=== PATIENT | male | born 1970 | race Caucasian/White ===

== ENCOUNTER → 2017-03-11 | Outpatient (CLI) | payer OTHER | LOC: CIMAGING 08:43 | PROVIDERS: ATTEND Orthopaedic Surgery | DX: Z01.818 Encounter for other preprocedural examination (principal); M17.11 Unilateral primary osteoarthritis, right knee; M16.11 Unilateral primary osteoarthritis, right hip ==

== ENCOUNTER 2017-03-29 06:03 | Inpatient (IN) | payer OTHER ==
[~2017-03-29 06:03] MED LIST: ROPI/epiNEPH/KETOROLAC JOINT COCKTAIL IU ONE; TRANEXAMIC ACID 3,000 MG in NS 50 ML IRR ONE
[2017-03-29] MEDS ORDERED: FAMOTIDINE 20 MG TAB PO ONE (06:10)
[2017-03-29] MEDS ORDERED: ACETAMINOPHEN 325 MG TAB PO ONE (06:10)
[2017-03-29] MEDS ORDERED: ceFAZolin 2 GM/SWFI 2 GM/20 ML SYR IVP ONE (06:10)
[2017-03-29] MEDS ORDERED: DEXAMETHASONE 4 MG/ML VIAL IVP ONE (06:10)
[2017-03-29] MEDS ORDERED: LR 1,000 ML IV ONE (06:11)
[2017-03-29] MEDS ORDERED: TRANEXAMIC ACID 3,000 MG/50 ML BAG IRR ONE (06:38)
[2017-03-29] MEDS ORDERED: VANCOMYCIN 1 GM VIAL ONE (06:38)
[2017-03-29] MEDS ORDERED: PROPOFOL/EMULSION 500 MG/50 ML BOTTLE IV ONE ×2 (07:11→07:46)
[2017-03-29] MEDS ORDERED: LIDOCAINE 2% 5 ML SDV ONE ×3 (07:12→08:04)
--- NOTE | 2017-03-29 07:15 | PDHPUP ---
History & Physical Update H&P update statement: This history and physical update is based on an assessment of the patient which was completed after admission or registration (within 24 hours), but prior to the surgery/procedure. H&P update: H&P reviewed & patient examined, no change in patient's condition since H&P completed
[2017-03-29] MEDS ORDERED: CYCLOBENZAPRINE 10 MG TAB PO PRN (07:16)
[2017-03-29] MEDS ORDERED: PROMETHAZINE HCL 25 MG/ML INJ IVP PRN (07:16)
[2017-03-29] MEDS ORDERED: BISACODYL 10 MG SUPP PR PRN (07:16)
[2017-03-29] MEDS ORDERED: METOCLOPRAMIDE 10 MG/2 ML VIAL IVP PRN (07:16)
[2017-03-29] MEDS ORDERED: PROMETHAZINE HCL 25 MG SUPPR PR PRN (07:16)
[2017-03-29] MEDS ORDERED: DIPHENOXYLATE/ATROPINE LOMOTIL 1 TAB PO PRN (07:16)
[2017-03-29] MEDS ORDERED: TEMAZEPAM 15 MG CAP PO PRN (07:16)
[2017-03-29] MEDS ORDERED: MAGNESIUM HYDROXIDE 30 ML UDCUP PO PRN (07:16)
[2017-03-29] MEDS ORDERED: diphenhydrAMINE 25 MG CAP PO PRN (07:16)
[2017-03-29] MEDS ORDERED: ONDANSETRON DISINTEGRATING 4 MG TAB PO PRN (07:16)
[2017-03-29] MEDS ORDERED: LACTULOSE 20 GM/30 ML UDCUP PO PRN (07:16)
[2017-03-29] MEDS ORDERED: ONDANSETRON 4 MG/2 ML VIAL IVP PRN ×2 (07:16→08:26)
[2017-03-29] MEDS ORDERED: POLYETHYLENE GLYCOL 3350 17 GM PKT PO PRN (07:16)
[2017-03-29] MEDS ORDERED: NS 1,000 ML IV SCH (07:30)
[2017-03-29] MEDS ORDERED: HYDROmorphONE/DILAUDID 2 MG/ML INJ ONE (07:46)
[2017-03-29] MEDS ORDERED: DEXAMETHASONE 4 MG/ML VIAL ONE ×2 (07:59→08:05)
--- NOTE | 2017-03-29 07:59 | PDANEPAE ---
ANE History of Present Illness knee arthroplasty ANE Past Medical History - Cardiovascular History Hx Hypertension: No Hx Arrhythmias: No Hx Chest Pain: No Hx Coronary Artery / Peripheral Vascular Disease: No Hx CHF / Valvular Disease: No Hx Palpitations: No Cardiovascular History Comment: recent dx of elevated BP-on HCTZ - Pulmonary History Hx COPD: No Hx Asthma/Reactive Airway Disease: No Hx Recent Upper Respiratory Infection: No Hx Oxygen in Use at Home: No Hx Sleep Apnea: No Sleep Apnea Screening Result - Last Documented: Negative - Neurologic History Hx Cerebrovascular Accident: No Hx Seizures: No Hx Dementia: No - Endocrine History Hx Diabetes: No - Renal History Hx Renal Disorders: No - Liver History Hx Hepatic Disorders: No - Neurological & Psychiatric Hx Hx Neurological and Psychiatric Disorders: Yes Neurological / Psychiatric History Comment: "twitching" in neck area. Occ in legs. - Cancer History Hx Cancer: No - Congenital Disorder History Hx Congenital Disorders: No - GI History Hx Gastrointestinal Disorders: No - Other Health History Other Health History: OA -bilat knees-R knee more painful - Chronic Pain History Chronic Pain: Yes (bilat knees) - Surgical History Prior Surgeries: C4 to C7 fusion. L4/L5 fusion. Bilat shoulder surgery(biceps tendon). bilat knee scopes x2. appy ANE Review of Systems Review of Systems: - Exercise capacity METS (RN): 4 METS ANE Patient History - Allergies Allergies/Adverse Reactions: No Known Allergies Allergy (Verified 03/05/17 14:12) - Home Medications Home Medications: Ibuprofen [Motrin (*)] 200 mg PO DAILY PRN 02/28/17 [Last Taken 03/15/17] Lisinopril 5 mg PO DAILY 03/29/17 [Last Taken 03/29/17 04:30] - NPO status NPO Since - Liquids (Date): 03/28/17 NPO Since - Liquids (Time): 21:00 NPO Since - Solids (Date): 03/28/17 NPO Since - Solids (Time): 20:30 - Anes Hx Anes Hx: no prior problems - Smoking Hx Smoking Status: Never smoked ANE Labs/Vital Signs - Vital Signs Blood Pressure: 154/91 Heart Rate: 69 Respiratory Rate: 17 O2 Sat (%): 94 Height: 182.88 cm Weight: 117.934 kg ANE Physical Exam - Airway Mallampati Score: Class 2 Mouth exam: normal dental/mouth exam - Pulmonary Pulmonary: no respiratory distress - Cardiovascular Cardiovascular: regular rate and rhythym - ASA Status ASA Status: II ANE Anesthesia Plan Anesthesia Plan: spinal Regional Anesthesia: adductor canal FNB
[2017-03-29] MEDS ORDERED: ONDANSETRON 4 MG/2 ML VIAL ONE (08:00)
[2017-03-29] MEDS ORDERED: SUGAMMADEX SODIUM 200 MG/2 ML VIAL IVP ONE ×2 (08:01→08:34)
[2017-03-29] MEDS ORDERED: ROPIVACAINE HCL 150 MG/30 ML INJ ONE (08:02)
[2017-03-29] MEDS ORDERED: epHEDrine SULFATE 10 MG/ML SYR ONE (08:21)
[2017-03-29] MEDS ORDERED: HYDROmorphONE/DILAUDID 1 MG/ML INJ IVP PRN (08:26)
[2017-03-29] MEDS ORDERED: NALOXONE HCL 0.4 MG/ML INJ IVP PRN (08:26)
[2017-03-29] MEDS ORDERED: LR 500 ML IV PRN (08:26)
[2017-03-29] MEDS ORDERED: ALBUTEROL 3 ML DEYVIAL IH PRN (08:26)
--- NOTE | 2017-03-29 08:53 | POSTOPPROG ---
Post Op Note Date of Operation: 03/29/17 Surgeon: Skylar Damon Medical Staff Services Manager: el damon Anesthesiologist: dr. wallace Anesthesia: Spinal, Other (Specify) (adductor canal block) Pre-op Diagnosis: Right knee OA Post-op Diagnosis: same Indication: right knee pain due to OA that failed conservative measures Procedure: R TKA robot assisted Findings: severe knee OA Inf/Abcess present in the surg proc area at time of surgery?: No EBL: 50-100
[2017-03-29] MEDS ORDERED: SENNOSIDES/DOCUSATE SODIUM TAB PO SCH (09:00)
--- NOTE | 2017-03-29 09:09 | POSTANESTH ---
Post Anesthetic Evaluation Cardiovascular Status: Normal, Stable Respiratory Status: Normal, Stable Level of Consciousness/Mental Status: Can Participate in Eval Pain Control: Adequate, Prn Tx Ordered Nausea/Vomiting Control: Adequate, Prn Tx Ordered Complications Possibly Related to Anesthesia: None Noted
[2017-03-29] MEDS ORDERED: fentaNYL 100 MCG/2 ML INJ ONE (09:44)
[2017-03-29] MEDS: fentaNYL 100 MCG/2 ML INJ IVP PRN ×2 (09:50→10:12)
[2017-03-29 10:41] VITALS: RESP 16; TEMP 98.2
[2017-03-29] MEDS: oxyCODONE IR 5 MG TAB PO PRN ×2 (11:48→15:47)
[2017-03-29] MEDS ORDERED: ACETAMINOPHEN 325 MG TAB PO SCH (12:00)
[2017-03-29 13:03] VITALS: BP 109/52; PULSE 78; O2SAT 92
[2017-03-29] MEDS ORDERED: ceFAZolin 2 GM/DEXTROSE 100 ML IV SCH (15:00)
--- NOTE | 2017-03-29 16:24 | ASDISCHSUM ---
Discharge Information Plan Status:Home with No Needs Medically Cleared to Leave: Discharge Date:03/29/2017 04:03 PM CM D/C Disposition:Home, Routine, Self-Care ADT D/C Disposition:Home, Routine, Self-Care Projected Discharge Date:03/29/2017 04:03 PM Transportation at D/C: Discharge Delay Reason: Follow-Up Date:03/29/2017 04:03 PM Discharge Slot: Final Diagnosis: Placement Information Patient Contact Information Contact Name:FERMIN Relationship:Life Partner Address: Work Phone: City: [facility] Phone: State/Zip Code: Email: Financial Information Financial Class:HMO and PPO Plans Primary Plan Desc:[employer] Primary Plan Number:[id number] Secondary Plan Desc: Secondary Plan Number: Assessment Information CM Clinical Abstractor Assessment CM Note CM Note Notes: Pedro is excepting to discharge home from the hospital independently. He stated he has had several surgeries before and is familiar with the routine. Pedro did note that he has a scab on his knee and that [facility]' office is requiring it heal before surgery. Date Signed: 03/19/2017 02:21 PM Electronically Signed By:Akilah Stuart Intervention Information
[2017-03-29] MEDS ORDERED: ASPIRIN EC 81 MG TAB PO SCH (21:00)
[2017-03-29] MEDS ORDERED: FAMOTIDINE 20 MG TAB PO SCH (21:00)
[2017-03-30] MEDS ORDERED: LISINOPRIL 5 MG TAB PO SCH (09:00)
--- NOTE | 2017-03-30 12:12 | GDS ---
[f rep st] DISCHARGE SUMMARY ADMISSION DIAGNOSIS: Right knee osteoarthritis. DISCHARGE DIAGNOSIS: Right knee osteoarthritis. PROCEDURE: Right total knee arthroplasty, robot assisted. VTE PROPHYLAXIS: Aspirin 81 mg b.i.d. for 4 weeks recommended. BRIEF DESCRIPTION OF HOSPITAL STAY: Patient was admitted for an elective joint arthroplasty. The pa filiberto tolerated the procedure well and has passed physical therapy. The patient was given appropriat e antibiotic prophylaxis and venous thromboembolism prophylaxis. The patient's pain was well control led on oral pain medication, patient was holding down food, and had urinated. Decision was made to d ischarge the patient. The patient was given post-operative prescriptions pre-operatively. PLAN: To follow up as scheduled, Dr. Aviles's office, April 18 at 9 a.m. /[id number]/MODL
--- NOTE | 2017-03-30 12:27 | GOP ---
[f rep st] OPERATIVE REPORT DATE OF OPERATION: 03/29/2017 SURGEON: Nallely Aviles MD SUPPLY CHAIN VICE PRESIDENT: TRISTAN Chávez ANESTHESIA: Spinal. PREOPERATIVE DIAGNOSIS: Right knee osteoarthritis. POSTOPERATIVE DIAGNOSIS: Right knee osteoarthritis. PROCEDURE PERFORMED: Right total knee arthroplasty with computer navigation and robotic assist. FINDINGS: ESTIMATED BLOOD LOSS: 30 cc. INDICATIONS: This is a 46-year-old male with severe and progressive pain and deformity of the right knee unresponsive to conservative care. The risks and benefits of surgical intervention were explained in detail. DESCRIPTION OF PROCEDURE: The patient was brought to the operative room and placed on the table in the supine position. Spinal anesthesia was induced without difficulty. A pneumatic tourniquet was applied about the right proximal thigh, and the leg was prepped and draped in a sterile fashion. The leg islas was applied. After exsanguination by elevation the tourniquet was inflated to 275 mm of mercury. Incision was made anterior medial from the tibial tuberosity to a point 2 cm proximal to the superior pole of the patella. Medial parapatellar arthrotomy was carried out from the superior pole of the patella and posteriorly in line with the fibers of the Type II VMO. The medial collateral ligament was elevated and the infrapatellar fat pad was resected. The patella was everted and the articular surface was excised. A 38 mm patellar button was placed. Attention was turned first to the distal aspect of the right femur. At 3 cm proximal to the medial rise of the femur, 2 percutaneous half pins were placed for fixation of the femoral array. In a similar fashion, 2 pins were placed anteromedial on the tibia for fixation of the tibial array. External land marking and registration of the hip center was performed without difficulty. Internal femoral and tibial registration was carried out without difficulty and the femoral and tibial checkpoints were placed and verified for accuracy. Attention was turned to the femur. The foot print for the size 6 femoral component was cut with the saw using the [employer] robotic system and verified for accuracy against the CT based plan. In a similar fashion, saw was used to cut the footprint for the size 7 tibial component using the [employer] system and verified for accuracy against the CT based plan. The tibial articular surface was excised without difficulty, followed by the intercondylar box cut. The knee was extended and the remnants of the medial and lateral meniscus were excised. The posterior capsule was injected with ropivacaine, epinephrine and Toradol. A size 7 MIS mini-keel tibial tray was positioned. Trial reduction was then carried out. There was excellent range of motion, alignment, and stability using the 9 mm polyethylene. All trials were then removed. The joint was thoroughly irrigated and carefully dried. Two packages of cement and 2 grams of vancomycin were mixed in the vacuum mixer and placed on the fixation surfaces of all surfaces of the components. The components were implanted and all excess cement was thoroughly removed. The permanent 9 mm polyethylene was placed without difficulty. The tourniquet was deflated and all bleeders were coagulated. The wound was thoroughly irrigated and closed using interrupted sutures of 2-0 Vicryl for the joint capsule. The subcu was closed with 3-0 Vicryl and the skin with 4-0 Monocryl. Dermabond and Steri-Strips were applied followed by a compressive dressing. The patient was then moved from the operating room to the recovery room in good condition, having tolerated the procedure well. PATHOLOGY: Severe medial and patellofemoral osteoarthritis. /[id number]/MODL MTDD
== END 2017-03-29 16:03 | disposition home or self-care (01) | DRG 470 ==
LOC: F3N 06:03 → EDSTATUS 12:15
PROVIDERS: ADMIT Orthopaedic Surgery; ATTEND Orthopaedic Surgery
DX: M17.11 Unilateral primary osteoarthritis, right knee (principal); Z98.1 Arthrodesis status
CPT/HCPCS: 97161-GP; 97165-GO; C1713; J0171; J1100; J1170; J1885; J2405; J2704; J2795; J3010; J3370

== ENCOUNTER 2017-12-18 | Observation (INO) | payer OTHER | END 2017-12-18 17:00 | disposition home or self-care (01) | PROVIDERS: ADMIT Orthopaedic Surgery | PROC: 8E0Y0CZ Robotic Assisted Procedure of Lower Extremity, Open Approach (ICD-10-PCS; principal; 2017-12-18) | PROC: 0SRD0JZ Replacement of Left Knee Joint with Synthetic Substitute, Open Approach (ICD-10-PCS; principal; 2017-12-18) | PROC: 8E0YXBZ Computer Assisted Procedure of Lower Extremity (ICD-10-PCS; principal; 2017-12-18) | DX: M17.12 Unilateral primary osteoarthritis, left knee (principal); I10 Essential (primary) hypertension | CPT/HCPCS: 27447; 73560; 97161; G0378 ==